=== PATIENT | male | born 1950 | race Two or more races ===

== ENCOUNTER 2018-03-24 05:18 | Emergency (ER) | payer MEDICARE, OTHER ==
[~2018-03-24] VITALS: Ht 170.2 cm; Wt 64.0 kg
[2018-03-24] MEDS ORDERED: KETOROLAC 30MG/ML VIAL IM ONE (06:00)
[2018-03-24] MEDS ORDERED: ONDANSETRON HCL 4MG/2ML INJ IV STA (06:51)
[2018-03-24] MEDS ORDERED: MORPHINE SULFATE 4 MG/ML CPJ (NOT FOR IM USE) IV STA (06:51)
[2018-03-24] MEDS ORDERED: SODIUM CHLORIDE 0.9% 1,000 ML IV ONE (06:51)
[2018-03-24 07:28] LABS: BASOPHILS % 0.4 % (0.0-2.0); EOSINOPHILS % 1.9 % (0.0-5.0); HEMATOCRIT. 36.6 % (42.0-52.0); HEMOGLOBIN. 12.5 g/dL (14.0-18.0); LYMPHOCYTES % 35.6 % (20.0-50.0); MEAN CORPUSCULAR HEMOGLOBIN 31.2 pg (28.0-32.0); MEAN PLATELET VOLUME 6.8 fl (7.4-10.4); MONOCYTES % 6.8 % (2.0-8.0); NEUTROPHILS % 55.3 % (40.0-76.0); PLATELET 319 x1000/uL (130-400); RED BLOOD CELL COUNT 4.02 mill/uL (4.7-6.1); RED CELL DISTRIBUTION WIDTH 14.2 % (11.6-14.6)
[2018-03-24 07:29] LABS: CHLORIDE 101 mEq/L (98-107)
[2018-03-24] MEDS ORDERED: MORPHINE SULFATE 4 MG/ML CPJ (NOT FOR IM USE) IV ONE (09:00)
[2018-03-24 09:57] VITALS: BP 135/74
== END 2018-03-24 09:59 | disposition home or self-care (01) ==
LOC: ER 05:18
DX: R10.9 Unspecified abdominal pain (principal); J44.9 Chronic obstructive pulmonary disease, unspecified; E11.9 Type 2 diabetes mellitus without complications; I10 Essential (primary) hypertension
CPT/HCPCS: 36415; 71045; 74176; 80053; 83690; 85025; 96372; 96374; 96375; 96376; 99285; J1885; J2270; J2405; J7030

== ENCOUNTER 2018-04-25 05:20 | Inpatient (IN) | payer MEDICARE, MEDICAID ==
[~2018-04-25] VITALS: Ht 172.7 cm; Wt 46.3 kg
[2018-04-25] MEDS ORDERED: MORPHINE SULFATE 4 MG/ML CPJ (NOT FOR IM USE) IV STA (06:35)
[2018-04-25] MEDS ORDERED: ONDANSETRON HCL 4MG/2ML INJ IV STA (06:35)
[2018-04-25] MEDS ORDERED: ALBUTEROL (0.083%) 2.5MG/3ML NEB HHN STA ×2 (06:35→08:20)
[2018-04-25] MEDS ORDERED: METHYLPREDNISOLONE SOD SUCC 125 MG/2 ML VIAL IV STA (06:35)
[2018-04-25] MEDS ORDERED: IPRATROPIUM BROMIDE (0.02%) 0.5MG/2.5ML NEB HHN STA ×2 (06:35→08:20)
[2018-04-25 07:05] LABS: BASOPHILS % 0.5 % (0.0-2.0); EOSINOPHILS % 0.6 % (0.0-5.0); HEMATOCRIT. 41.3 % (42.0-52.0); LYMPHOCYTES % 30.6 % (20.0-50.0); MEAN CORPUSCULAR HEMOGLOBIN 31.9 pg (28.0-32.0); MEAN CORPUSCULAR VOLUME 93.8 fL (80.0-94.0); MEAN PLATELET VOLUME 7.8 fl (7.4-10.4); MONOCYTES % 6.4 % (2.0-8.0); NEUTROPHILS % 61.9 % (40.0-76.0); PLATELET 312 x1000/uL (130-400); RED CELL DISTRIBUTION WIDTH 14.2 % (11.6-14.6)
[2018-04-25 07:11] LABS: CHLORIDE 98 mEq/L (98-107)
[2018-04-25 07:13] LABS: PARTIAL THROMBOPLASTIN TIME 27.3 sec (23.4-31.0)
[2018-04-25] MEDS ORDERED: MAGNESIUM 2 G PREMIX 50 ML IV ONE (08:30)
[2018-04-25] MEDS ORDERED: LORAZEPAM 0.5MG TABLET PO PRN (11:45)
[2018-04-25] MEDS ORDERED: NA PHOS,M-B/NA PHOS,DI-BA ENEMA 118ML PR PRN (11:45)
[2018-04-25] MEDS ORDERED: IPRATROPIUM/ALBUTEROL 0.5-3(2.5)MG/3ML NEB INH PRN (11:45)
[2018-04-25] MEDS ORDERED: ACETAMINOPHEN 325MG TABLET PO PRN (11:45)
[2018-04-25] MEDS ORDERED: GUAIFENESIN 200MG/10ML SUGAR FREE UDC PO PRN (11:45)
[2018-04-25] MEDS ORDERED: MAGNESIUM/ALUMINUM HYDROXIDE/SIMETHICONE 30ML UDC PO PRN (11:45)
[2018-04-25] MEDS ORDERED: DOCUSATE SODIUM 100MG CAPSULE PO PRN (11:45)
[2018-04-25] MEDS ORDERED: DEXTROSE 50% WATER 50ML SYRINGE IV PRN (11:45)
[2018-04-25] MEDS ORDERED: CLONIDINE 0.1MG TABLET PO PRN (11:45)
[2018-04-25] MEDS ORDERED: ONDANSETRON HCL 4MG/2ML INJ IV PRN (11:45)
[2018-04-25] MEDS ORDERED: NITROGLYCERIN 0.4MG TABLET SL SL PRN (11:45)
[2018-04-25] MEDS ORDERED: METHYLPREDNISOLONE SOD SUCC 40 MG/ML VIAL IV NR (14:30)
[2018-04-25] MEDS ORDERED: LEVOFLOXACIN 500MG PREMIX 100 ML IV NR (14:30)
[2018-04-25] MEDS ORDERED: KETOROLAC 15MG/ML VIAL IV NR (14:45)
[2018-04-25 19:26] LABS: CREATINE KINASE MB FRACTION 1.3 ng/mL (0.5-3.6)
[2018-04-25 19:28] LABS: CREATINE KINASE 23 IU/L (39-308)
[2018-04-25] MEDS ORDERED: ZOLPIDEM TARTRATE 5MG TABLET PO PRN (22:27)
[2018-04-25 22:30] VITALS: BP 126/64
[2018-04-25] MEDS: GUAIFENESIN/DM 600MG/30MG ER TAB 12HR PO SCH (22:41)
[2018-04-25] MEDS: TRAMADOL 50MG TABLET PO PRN (22:41)
[2018-04-25] MEDS: METHYLPREDNISOLONE SOD SUCC 125 MG/2 ML VIAL IV SCH (22:41)
[2018-04-25] MEDS: ASCORBIC ACID 500 MG TABLET PO SCH (22:42)
[2018-04-25] MEDS: FAMOTIDINE 20MG TABLET PO SCH (22:42)
[2018-04-25] MEDS: BLOOD SUGAR DIAGNOSTIC STRIP TEST SCH (22:42)
[2018-04-25] MEDS: INSULIN LISPRO 100 UNITS/ML SUBCUT SCH (22:44)
[2018-04-25] MEDS ORDERED: SITA100T11 PO (23:19)
[2018-04-25] MEDS ORDERED: P20 PO (23:21)
[2018-04-26] VITALS (7 sets, daily range): BP systolic 113–143; BP diastolic 55–67
[2018-04-26] MEDS: IPRATROPIUM/ALBUTEROL 0.5-3(2.5)MG/3ML NEB HHN SCH ×6 (01:08→20:46)
[2018-04-26] MEDS: KETOROLAC 15MG/ML VIAL IV PRN ×2 (03:22→16:36)
[2018-04-26] MEDS: METHYLPREDNISOLONE SOD SUCC 125 MG/2 ML VIAL IV SCH (05:10)
[2018-04-26] MEDS: BLOOD SUGAR DIAGNOSTIC STRIP TEST SCH ×4 (06:24→20:18)
[2018-04-26] MEDS: INSULIN LISPRO 100 UNITS/ML SUBCUT SCH ×5 (06:27→20:53)
[2018-04-26] MEDS: GUAIFENESIN/DM 600MG/30MG ER TAB 12HR PO SCH ×2 (08:17→20:18)
[2018-04-26] MEDS: FAMOTIDINE 20MG TABLET PO SCH ×2 (08:17→20:18)
[2018-04-26] MEDS: ASCORBIC ACID 500 MG TABLET PO SCH ×2 (08:17→20:18)
[2018-04-26] MEDS ORDERED: ENOXAPARIN 40MG/0.4ML SYR SUBCUT SCH (09:00)
[2018-04-26] MEDS ORDERED: ASPIRIN 325MG EC TABLET PO SCH (09:00)
[2018-04-26] MEDS ORDERED: NICOTINE 7MG PATCH TD SCH (09:15)
[2018-04-26] MEDS ORDERED: LEVOFLOXACIN 500MG PREMIX 100 ML IV SCH (14:00)
[2018-04-26] MEDS ORDERED: METHYLPREDNISOLONE SOD SUCC 40 MG/ML VIAL IV SCH (18:00)
[2018-04-26] MEDS: TRAMADOL 50MG TABLET PO PRN (20:52)
[2018-04-27] VITALS: BP 128/66
== END 2018-04-27 00:45 | disposition short-term general hospital (02) | DRG 189 ==
LOC: ER 06:18 → EDBEDREQ 09:56 → 8WST 11:45 → SUPCPDRO 11:45 → ENRESERV 19:47
PROVIDERS: ADMIT Internal Medicine; ATTEND Internal Medicine
DX: J96.00 Acute respiratory failure, unspecified whether with hypoxia or hypercapnia (principal); J44.1 Chronic obstructive pulmonary disease with (acute) exacerbation; E11.9 Type 2 diabetes mellitus without complications; F17.210 Nicotine dependence, cigarettes, uncomplicated; M79.7 Fibromyalgia; D72.829 Elevated white blood cell count, unspecified
CPT/HCPCS: 36415; 71045; 80061; 82550; 82553; 82962; 83036; 83880; 84484; 93005; 93970; 96365; 96375; 96376; 97162; 99285; J1650; J1815; J1885; J1956; J2270; J2405; J2920; J2930; J3475; J7611; J7620